=== PATIENT | female | born 1950 | race Caucasian/White ===

== ENCOUNTER 2022-11-12 13:57 | Emergency (ER) | payer OTHER ==
[2022-11-12] MEDS ORDERED: Cyclobenzaprine 10 MG Tab PO ONE (14:24)
[2022-11-12] MEDS ORDERED: Sodium Chloride 0.9% 10 ML Syringe FLUSH PRN (14:25)
[2022-11-12] MEDS ORDERED: fentaNYL 100 MCG/2 ML SDV IVPUSH ONE (14:25)
[2022-11-12] MEDS ORDERED: Iopamidol 612 MG/ML 100 ML Bottle IV SCH (14:30)
[2022-11-12] MEDS ORDERED: Sodium Chloride 0.9% 50 ML IV SCH (14:30)
== END 2022-11-12 16:48 | disposition home or self-care (01) ==
LOC: JP.ED 13:57
DX: S20.219A Contusion of unspecified front wall of thorax, initial encounter (principal); E78.00 Pure hypercholesterolemia, unspecified; Z79.899 Other long term (current) drug therapy; V89.2XXA Person injured in unspecified motor-vehicle accident, traffic, initial encounter; Y92.410 Unspecified street and highway as the place of occurrence of the external cause
CPT/HCPCS: 71260; 72125; 76377; 99282; 99285; A9270-GY; J3490; Q9967